=== PATIENT | female | born 1950 | race Caucasian/White ===

== ENCOUNTER 2017-06-20 08:26 | Day surgery (SDC) | payer BC ==
--- NOTE | 2017-06-20 06:19 | History and Physical Report ---
DATE: 06/20/17. CHIEF COMPLAINT AND HISTORY OF CHIEF COMPLAINT: This patient presents with a history of intractable radiculopathy managed by a spinal cord stimulator with internal generator with device placement on 09/16/2014. Although the device appears to be working quite well, the generator site at the right posterior gluteal margin has shifted and become quite painful. She is here for revision of the pouch and relocation of the generator. We will also be changing the generator from a previous Spectra to the new WaveWriter technology which improves functionality. PAST MEDICAL HISTORY: Asthmatic bronchitis. PAST SURGICAL HISTORY: Knee surgery, tubal ligation, spinal cord stimulator implant. MEDICATIONS ON ADMISSION: To be provided. ALLERGIES: To be provided. SOCIAL HISTORY: Caffeine. REVIEW OF SYSTEMS: The patient is appropriate and in no acute distress. The remainder of the systems review shows headaches, respiratory disease, peripheral edema, degenerative arthritis. PHYSICAL EXAMINATION: General: Height and weight are not available. Weight: Unavailable. Vital Signs: Unavailable. HEENT: Within normal limits. Lungs: Clear. Heart: Regular rate and rhythm. Abdomen: Nontender. Musculoskeletal: Examination of the musculoskeletal system shows the generator in the right posterior gluteal margin. The incisional site itself appears to be intact with no breakdown or cellulitis. Primary intractable pain appears to be upper extremity. Motor and sensory field function is intact. Neurologic: Cranial nerves are intact. IMPRESSION: 1. INTRACTABLE CERVICAL RADICULOPATHY, ICD-10 CODE M54.12. 2. SPINAL CORD STIMULATOR INTERNAL GENERATOR PAINFUL GENERATOR. PLAN: The patient is here for relocation and replacement of the generator at the right posterior gluteal margin. The procedure will be considered outpatient , although an overnight stay will be evaluated. JOB NUMBER: [id number] cc: Jesica BlakeD
[~2017-06-20 08:26] MED LIST: ACETAMINOPHEN 1,000 MG/100 ML BTL IV ONE; CEFAZOLIN 2 Gram 2 GM/50 ML BAG IVPB ONE; FAMOTIDINE 20MG TABLET PO ONE; MECLIZINE 25 MG TABLET PO ONE; METOCLOPRAMIDE 10 MG TABLET PO ONE
[2017-06-20] MEDS ORDERED: FENTANYL PF 0.25MG/5ML AMPUL IV ONE (08:27)
[2017-06-20] MEDS ORDERED: FENTANYL PF 100MCG/2ML VIAL IV ONE (08:27)
[2017-06-20] MEDS ORDERED: MIDAZOLAM HCL 2MG/2ML VIAL IV ONE (08:27)
[2017-06-20] MEDS ORDERED: BUPIVACAINE 0.5% W/EPI MPF 30 ML VIAL IVP ONE (08:27)
[2017-06-20] MEDS ORDERED: LIDOCAINE 1% W/EPI 1:200,000 MPF 30ML SQ ONE (08:27)
[2017-06-20] MEDS ORDERED: PROPOFOL 10 MG/ML VIAL IV ONE (08:27)
--- NOTE | 2017-06-21 19:39 | Operative Note - [place] ---
DATE OF SURGERY: 06/20/17 PREOPERATIVE DIAGNOSES: 1. INTRACTABLE CERVICAL RADICULOPATHY, ICD-10 CODE = M54.12. 2. SPINAL CORD STIMULATOR INTERNAL GENERATOR WITH PAINFUL POUCH AND MALFUNCTIONING GENERATOR. SURGERY: 1. INCISION, SUBCUTANEOUS DISSECTION, AND REMOVAL OF A SPINAL CORD STIMULATOR GENERATOR AT RIGHT POSTERIOR GLUTEAL MARGIN. 2. INCISION, SUBCUTANEOUS DISSECTION, AND CREATION OF SUBCUTANEOUS POUCH FOR NEW GENERATOR LATERAL TO THE PREVIOUS POUCH. 3. REVISION OF LEAD AND EXTENSIONS TUNNELING LEAD AND EXTENSIONS INTO RIGHT SUBCUTANEOUS POUCH FOR GENERATOR. 4. INTERFACE REVISED REPOSITIONED LEADS TO NEW GENERATOR IDENTIFIED A Analyze Re WAVEWRITER. 5. PLACEMENT OF GENERATOR INTO POUCH SECURING TO POSTERIOR FASCIA WITH NONABSORBABLE SUTURE. CLOSURE OF BOTH INCISIONS, PREVIOUS POUCH AND CURRENT POUCH, WITH VICRYL FOR FASCIA, RUNNING SUBCUTICULAR VICRYL FOR SKIN, DERMABOND CLOSURE. 6. COMPLEX PROGRAMMING IN RECOVERY ROOM INTERNAL GENERATOR HOME USE 20 MINUTES. SURGEON: KAITLIN WEST D.O. ANESTHESIA: LOCAL SEDATION. ANESTHESIA PROVIDER: JIL LUX CRNA. INDICATION: This patient presents with a history of an intractable cervical radiculopathy managed by a spinal cord stimulator. The current generator, which sits at the right posterior gluteal marginis more medial and, according to the patient, is irritating the sacrum causing pain. Along with this, there have been some issues and problems with respect to programming her current cervical stimulator to control pain and an increase in the amount of breakthrough pain but no ability to program the generator to cover the pain. Because of the pain, she was given the option to reposition. Because of the difficulties with the current generator, she was offered a replacement with the new generation WaveWriter technology providing more capabilities, stimulation patterns, and pain control potential. She is here for removal of the previous generator, relocation of the pouch more laterally away from the sacrum, and replacing the generator. SURGERY: Intravenous line, vital sign monitoring, IV sedation, prepped and draped with sterile technique. Patient positioned prone. Sterile prep, sterile technique. The previous generator pouch incision infiltrated with local, an incision made and subcutaneous dissection was conducted to the generator, which was exteriorized and from the lead and extensions. A new pouch site, which had been picked by the patient more lateral to the previous, still below the beltline, and in the posterior gluteal margin skin infiltrated, incision made and subcutaneous dissection was conducted to form a pouch of suitable size and depth for the new generator identified as a [employer] WaveWriter. The previous pouch, leads, and extensions were then revised and tunneled into the new pouch. The new lead extensions tunneled into the pouch were then interfaced with the WaveWriter generator. Antibiotic irrigation and Bovie for hemostasis at both pouches. The generator and its connection to the lead and extension was then placed into the pouch and secured to the posterior fascia with nonabsorbable suture. Both incisions were then closed with Vicryl for fascia, running subcuticular Vicryl for skin. A Dermabond closure was used to approximate the edges of both wounds. She was transported to the Recovery Room stable, no side-effects from the procedure or the sedation. When fully awake and alert, complex programming of the new generator performed reestablishing stimulation and pain control to all the appropriate areas. She was instructed on the use of the system and provided the information on the error messaging and then prepared for discharge. DISCHARGE INSTRUCTIONS: 1. Sites are to remain clean and dry. No showering or bathing in any way that would disrupt dressings. If it happens, contact the Clinic. 2. Standard medications resumed including Levaquin, the antibiotic, 500 mg once a day for 14 days. 3. She will keep her activities low. She will be seen in the office in 7 to 10 days. The office will call the patient in 24 to 48 hours to set up the appointment. All other instructions provided. Numbers to contact if problems given. She will be discharged. cc: Dr. Coty Olson JOB NUMBER: [id number] MTDD
== END 2017-06-20 13:00 | disposition home or self-care (01) ==
LOC: SUR 08:26
PROVIDERS: ATTEND Pain Medicine Interventional Pain Medicine
DX: M54.12 Radiculopathy, cervical region (principal); J44.9 Chronic obstructive pulmonary disease, unspecified
CPT/HCPCS: 95972; C1820